=== PATIENT | female | born 1935 | race Caucasian/White ===

== ENCOUNTER → 2018-08-20 | Outpatient (REF) | payer MEDICARE ==
[2018-08-20 09:57] LABS: HEMATOCRIT 42.5 % (37.0-47.0); HEMOGLOBIN 13.2 g/dl (12.0-16.0); MEAN CELL VOLUME 89.9 fL CALC (80.0-100.0); MEAN CORPUSCULAR HGB 27.9 pG CALC (26.0-32.0); MEAN CORPUSCULAR HGB CONC 31.1 g/L CALC (32.0-36.0); RED BLOOD COUNT 4.73 mill/uL (4.20-5.60); RED CELL DISTRI WIDTH 13.9 % (11.5-15.5)
[2018-08-20 10:22] LABS: ALKALINE PHOSPHATASE 100 u/l (38-126); ANION GAP 13 (6-22 (CALC)); BILIRUBIN, TOTAL 0.6 mg/dL (0.0-1.4); BUN 24 mg/dL (8-23); BUN/CREATININE RATIO 28 (12-20 (CALC)); CALCULATED LDLCHOLESTEROL 129 mg/dL (62-129 (CALC)); CARBON DIOXIDE 28 mmol/l (22-30); CHLORIDE 106 mmol/l (95-108); CHOLESTEROL HDL RATIO 2.8 (<4.4 (CALC)); CREATININE 0.9 mg/dL (0.5-1.0); GFR 60 ML/MIN (>=60 (CALC)); GFR FOR AFR.AMER. > 60 ML/MIN (>=60 (CALC)); HDL CHOLESTEROL 79 mg/dL (>=40); POTASSIUM 4.4 mmol/l (3.5-5.1); SGOT/AST 18 u/l (9-36); SODIUM 142 mmol/l (137-146); TOTAL CHOLESTEROL 221 mg/dl (0-199); TOTAL TRIGLYCERIDES 63 mg/dl (30-149); VLDL CHOLESTROL 13 mg/dl (0-48 (CALC))
[2018-08-20 10:53] LABS: TSH, 3RD GENERATION 2.03 uIU/mL (0.47 - 4.68)
== END | disposition home or self-care (01) ==
LOC: LAB 09:23
PROVIDERS: ATTEND Nurse Practitioner Family
DX: I10 Essential (primary) hypertension (principal); E78.49 Other hyperlipidemia; F41.9 Anxiety disorder, unspecified

== ENCOUNTER 2019-03-01 12:01 | Emergency (ER) | payer MEDICARE ==
[~2019-03-01] VITALS: Ht 162.6 cm; Wt 84.0 kg
[2019-03-01 12:11] VITALS: BP 143/76
[2019-03-01] MEDS ORDERED: ASPIRIN ENTERIC81 MG PO (12:16)
[2019-03-01] MEDS ORDERED: AMOXICILLIN500 M2 PO (12:37)
[2019-03-01] MEDS ORDERED: ZOFRAN4 M1 PO (12:37)
== END 2019-03-01 12:50 | disposition home or self-care (01) ==
LOC: ED 12:01
DX: J02.9 Acute pharyngitis, unspecified (principal); I10 Essential (primary) hypertension

== ENCOUNTER 2019-06-15 | Emergency (ER) | payer MEDICARE ==
[~2019-06-15] MED LIST: AMOXICILLIN500 M2 PO; ASPIRIN ENTERIC81 MG PO; ZOFRAN4 M1 PO
[2019-06-15] MEDS ORDERED: MEDDOSEPAK PO (11:18)
[2019-06-15] MEDS ORDERED: NAPROSYN250 MG PO (11:18)
== END 2019-06-15 11:34 | disposition home or self-care (01) ==
DX: M16.12 Unilateral primary osteoarthritis, left hip (principal); M47.816 Spondylosis without myelopathy or radiculopathy, lumbar region; I10 Essential (primary) hypertension

== ENCOUNTER 2019-06-18 | Emergency (ER) | payer MEDICARE ==
[~2019-06-18] MED LIST changes: +MEDDOSEPAK PO; +NAPROSYN250 MG PO
[2019-06-18 07:33] LABS: HEMATOCRIT 46.8 % (37.0-47.0); HEMOGLOBIN 14.5 g/dl (12.0-16.0); IMMATURE GRANULOCYTES 0.4 % (0.0-5.0); MEAN CELL VOLUME 88.5 fL CALC (80.0-100.0); MEAN CORPUSCULAR HGB 27.4 pG CALC (26.0-32.0); NEUT# 5.2 thou/uL (2.00-7.15); RED BLOOD COUNT 5.29 mill/uL (4.20-5.60); RED CELL DISTRI WIDTH 13.7 % (11.5-15.5)
[2019-06-18 08:01] LABS: ALBUMIN 4.5 g/dL (3.2-5.0); ALKALINE PHOSPHATASE 105 u/l (38-126); ANION GAP 14 (6-22 (CALC)); BILIRUBIN, TOTAL 0.6 mg/dL (0.0-1.4); BUN 29 mg/dL (8-23); BUN/CREATININE RATIO 40 (12-20 (CALC)); CARBON DIOXIDE 27 mmol/l (22-30); CHLORIDE 103 mmol/l (95-108); CREATININE 0.7 mg/dL (0.5-1.0); GFR > 60 ML/MIN (>=60 (CALC)); GFR FOR AFR.AMER. > 60 ML/MIN (>=60 (CALC)); POTASSIUM 5.1 mmol/l (3.5-5.1); SGOT/AST 29 u/l (9-36); SODIUM 139 mmol/l (137-146); TOTAL PROTEIN 8.1 g/dL (6.3-8.2)
[2019-06-18 08:13] LABS: MYOGLOBIN 49 ng/mL (0 - 62)
[2019-06-18 11:06] LABS: URINE BILIRUBIN - DIPSTICK NEGATIVE (NEGATIVE); URINE BLOOD DIPSTICK TRACE-INTACT (NEGATIVE); URINE COLOR YELLOW; URINE GLUCOSE - DIPSTICK NEGATIVE (NEGATIVE); URINE KETONE NEGATIVE (NEGATIVE); URINE LEUK ESTERASE NEGATIVE (NEGATIVE); URINE NITRITE - DIPSTICK NEGATIVE (Negative); URINE PH 5.5 (4.5-8.0); URINE PROTEIN - DIPSTICK NEGATIVE (NEG-TRACE); URINE SPECIFIC GRAVITY 1.025; URINE UROBILINOGEN - DIPSTICK 0.2 E.U./dL (0.2)
[2019-06-18] MEDS ORDERED: LISINOP/HCTZ1 TA1 PO (11:15)
[2019-06-18] MEDS ORDERED: PHENERGAN25 MG/TAB PO (11:15)
== END 2019-06-18 11:48 | disposition home or self-care (01) ==
PROVIDERS: Family Medicine
DX: I10 Essential (primary) hypertension (principal); R11.0 Nausea

== ENCOUNTER 2020-11-06 08:37 | Emergency (ER) | payer MEDICARE ==
[~2020-11-06] VITALS: Ht 162.6 cm; Wt 79.5 kg
[~2020-11-06 08:37] MED LIST changes: +LISINOP/HCTZ1 TA1 PO; +PHENERGAN25 MG/TAB PO
[2020-11-06 12:14] VITALS: BP 155/72
== END 2020-11-06 12:20 | disposition home or self-care (01) ==
LOC: ED 08:37
DX: M79.605 Pain in left leg (principal); I10 Essential (primary) hypertension